=== PATIENT | male | born 1985 | race Two or more races ===

== ENCOUNTER 2021-07-16 15:16 | Emergency (ER) | payer SELFPAY ==
[~2021-07-16] VITALS: Ht 185.4 cm; Wt 77.1 kg
[2021-07-16] MEDS ORDERED: SODIUM CHLORIDE 0.9% 1,000 ML IV ONE (16:15)
[2021-07-16] MEDS ORDERED: fentaNYL CITRATE 100 MCG/2 ML VL IV ONE (16:15)
[2021-07-16 16:39] LABS: Basophils # (auto) 0.1 10 ^3/uL (0-0.2); Basophils % (auto) 0.3 % (0.0-2.0); Eosinophils # (auto) 0.1 10 ^3/uL (0-0.8); Eosinophils % (auto) 0.6 % (0.0-7.0); Hematocrit 48.5 % (41.0-53.0); Lymphocytes # (auto) 2.2 10 ^3/uL (0.4-5.4); Lymphocytes % (auto) 10.8 % (10.0-50.0); Mean Corpuscular Hemoglobin 29.4 pg (28.0-32.0); Monocytes # (auto) 0.9 10 ^3/uL (0-1.3); Monocytes % (auto) 4.4 % (0.0-12.0); Neutrophils # (auto) 16.9 10 ^3/uL (1.6-8.6); Neutrophils % (auto) 83.9 % (37.0-80.0); Red Blood Cells 5.45 10^6/uL (4.5-5.90); Red Cell Distribution Width 13.7 % (11.8-14.3); White Blood Cell 20.2 10^3/uL (4.4-10.8)
[2021-07-16 16:51] LABS: INR 1.1 (0.9-1.15); Partial Thromboplastin Time 25.8 sec (23.6-33.0)
[2021-07-16 16:52] LABS: Albumin 4.2 g/dL (3.4-5.0); Calcium 9.1 mg/dL (8.5-10.1); Potassium 3.6 mmol/L (3.5-5.1)
[2021-07-16 16:55] LABS: Bilirubin, Total 0.6 mg/dL (0.2-1.0)
[2021-07-16] MEDS ORDERED: ETOMIDATE (2MG/ML) 20ML VIAL IV ONE ×6 (17:30→18:21)
[2021-07-16] MEDS ORDERED: MIDAZOLAM HCL 5 MG/ML-1ML VIAL IV ONE ×2 (17:30→18:04)
[2021-07-16] MEDS ORDERED: MIDAZOLAM HCL 5 MG/ML-1ML VIAL ONE (17:54)
[2021-07-16] MEDS ORDERED: MORPHINE SULFATE 4 MG/ML SYR/VIAL ONE (18:14)
[2021-07-16] MEDS ORDERED: MORPHINE SULFATE 4 MG/ML SYR/VIAL IV ONE (18:15)
[2021-07-16] MEDS ORDERED: ONDANSETRON HCL 4 MG/2 ML VIAL ONE (18:47)
[2021-07-16] MEDS ORDERED: ONDANSETRON HCL 4 MG/2 ML VIAL IV ONE (19:00)
[2021-07-16 19:25] VITALS: BP 146/71
== END 2021-07-16 19:32 | disposition home or self-care (01) ==
LOC: ER 15:16
DX: S52.501A Unspecified fracture of the lower end of right radius, initial encounter for closed fracture (principal); S43.004A Unspecified dislocation of right shoulder joint, initial encounter; V86.09XA Driver of other special all-terrain or other off-road motor vehicle injured in traffic accident, initial encounter; Y93.89 Activity, other specified; Y92.89 Other specified places as the place of occurrence of the external cause; Y99.8 Other external cause status
CPT/HCPCS: 23650; 25605; 36415; 70450; 72125; 73020; 73030; 73100; 73110; 80053; 85025; 85610; 85730; 96361; 96374; 96375; 99152; 99285; J2250; J2270; J2405; J3010